=== PATIENT | female | born 1985 | race Caucasian/White ===

== ENCOUNTER → 2016-05-17 | Outpatient (CLI) | payer MEDICAID ==
[~2016-05-17] MED LIST: ACET-703 PO; ADVAI100I PO; ALBU8I INH; ALBUAER3 INH; BREAST PUMP1 MI1; CETI10 PO; DESO1TAB PO; IRON325T2 PO; METH4TAB6 PO; PEAKMIS IN; PRENCAP6 PO; PROC10TA PO; TERC.4%V VAGINAL; TERC0.8C VAGINAL; ZITH250T PO
== END ==
LOC: HPND 10:40
PROVIDERS: ATTEND Family Medicine
DX: Z34.90 Encounter for supervision of normal pregnancy, unspecified, unspecified trimester (principal); Z3A.00 Weeks of gestation of pregnancy not specified
CPT/HCPCS: 76805

== ENCOUNTER → 2016-06-14 | Outpatient (CLI) | payer MEDICAID ==
[~2016-06-14] MED LIST changes: -ADVAI100I PO; -ALBU8I INH; -CETI10 PO; -DESO1TAB PO; -IRON325T2 PO; -METH4TAB6 PO; -PEAKMIS IN; -ZITH250T PO
== END ==
LOC: HPND 10:34
PROVIDERS: ATTEND Family Medicine
DX: Z36 Encounter for antenatal screening of mother (principal)
CPT/HCPCS: 76816

== ENCOUNTER → 2016-07-18 | Outpatient (CLI) | payer MEDICAID | LOC: HPND 10:37 | PROVIDERS: ATTEND Family Medicine | DX: O35.8XX0 Maternal care for other (suspected) fetal abnormality and damage, not applicable or unspecified (principal) | CPT/HCPCS: 76816 ==

== ENCOUNTER 2016-08-23 16:26 | Emergency (ER) | payer MEDICAID ==
[~2016-08-23 16:26] MED LIST changes: -BREAST PUMP1 MI1; -TERC.4%V VAGINAL; -TERC0.8C VAGINAL
--- NOTE | 2016-08-23 17:31 | PD ---
HPI Chief Complaint cramping, vaginal spotting Date Seen: August 23, 2016 (Edis Sierra MD R2) Travel History International Travel<30 Days: No Contact w/Intl Traveler<30Days: No Known Affected Area: No (Edis Sierar MD R2) History of Present Illness HPI Ms. Walsh is a 30 yo at 28 5/7 weeks (ISIDORO 11/10/2016) patient of Dr. Milner who presents with cramping and vaginal spotting. Patient states that cramping began at 3 PM while at work; patient describes cramping is initially in her lower abdomen but going to her upper abdomen as well. Patient states that cramping is similar to pain she gets with menstruation rather than interval contractions. Patient states that she feels this every couple minutes. Patient states she did not have similar symptoms with prior gestation. Patient describes pain as uncomfortable; 5/10 in severity. Patient also reports vaginal spotting intermittently over the past week. Patient states that she does not see brittney blood, but notices bloody/ red/pink stain after wiping and 1 episode of bloody tinge on underwear. Patient states she last had sex 24 hours ago. Over the past week, patient has gone several days without the symptoms but has noticed it for several days. Patient does not report fever/chills, dysuria, or diarrhea. Patient reports normal movement. No concern for rupture of membranes. Per review of records, patient had reassuring ultrasound 07/18 without evidence of placental previa. ISIDORO consistent with LMP. labs reassuring. Patient has past medical history of asthma but has not used albuterol inhaler in approximately 1 month. Para: 1 : 3 : 1 (Edis Sierra MD R2) History Past Medical History Narrative Medical Per EMR Asthma (currently mild intermittent) Mild Anemia (Edis Sierra MD R2) Obstetric History Obstetric History 011 at term for nonreassuring rhythm in 2013 1 induced at 6 weeks gestation (Edis Sierra MD R2) Past Surgical History Narrative Surgical section 1 (Edis Sierra MD R2) Family History Narrative Family History Maternal- None Paternal- None Sisters x 2-Healthy (Edis Sierra MD R2) Social History Narrative Social History Lives in: [facility] Lives with Work: [employer] Pets: 1 cat and 1 dog Alcohol: prev. social drinker Tobacco: none Illicit drugs: none Insurance: medicaid (Edis Sierra MD R2) Allergies-Medications (Allergen,Severity, Reaction): Coded Allergies: No Known Allergies (Unverified , 08/09/16) Home Meds Active Scripts Terconazole Vaginal Cream 0.8 % Cream1 Appl VAGINAL HS #20 GM Ref 0 For 3 days. Prov:Edis Sierra MD R2 08/23/16 Prochlorperazine Maleate 10 Mg Tab10 Mg PO Q8HR PRN (NAUSEA OR VOMITING) #10 TAB Ref 0 Prov:Edis Sierra MD R2 06/05/16 Albuterol 8.5 GM Inh (Proair Hfa 8.5 GM Inh)90 Mcg/Act Aer2 Puff INH Q4-6H PRN ( SHORTNESS OF BREATH) #1 INHALER Ref 6 108 mcg/actuation Prov:Saulo Milner MD R2 05/17/16 Reported Medications Acetaminophen (Tylenol Extra Strength)500 Mg Tab1,000 Mg PO Q4-6H PRN (PAIN) Ref 0 06/05/16 Mv & Min W/Fe Fumarat ( 1) Cap1 Cap PO DAILY 08/27/13 Review of Systems General / Constitutional: No: Fever Eyes: No: Blurred Vision HENT: No: Headaches Cardiovascular: No: Chest Pain or Discomfort Respiratory: No: Short of Breath Gastrointestinal: Abdominal Pain (cramping) Genitourinary: No: Dysuria Skin: No Rash (Edis Sierra MD R2) Physical Exam T 97.9 RR 20 HR 87 BP 109/60 Narrative GENERAL: Well-nourished, well-developed patient. SKIN: Warm and dry. HEAD: Normocephalic and atraumatic. EYES: No scleral icterus. No injection or drainage. ENT: No nasal drainage noted. Mucous membranes pink. Airway patent. NECK: Supple, trachea midline. No JVD. CARDIOVASCULAR: Regular rate and rhythm without murmurs, gallops, or rubs. RESPIRATORY: CTAB; normal rate ABDOMEN/GI: Abdomen soft, non-tender, bowel sounds present, no rebound, no guarding Gravid EXTREMITIES: No cyanosis or edema. NEUROLOGICAL: Awake and alert. Motor and sensory function grossly within normal limits. GENITOURINARY: Speculum performed External Genitalia: intact and normal in appearance Cervix: appears closed, no signs of bleeding. Whitish, thick discharge present suggestive of yeast infection Dilatation: visually appears closed Membranes: Intact Uterine Contractions: None FHT's: Category: 1 Baseline: 130 Reactive: Y Variability: Mod Decels: None (Edis Sierra MD R2) Data Data Vital Signs Reviewed: Yes (Edis Sierra MD R2) MDM Medical Record Reviewed: Yes Narrative Course / MDM 30 yo at 28 5/7 weeks (ISIDORO 11/10/2016) patient of Dr. Milner -Symptoms of 1 day cramping and 1 week vaginal spotting -No previa on prior US -Cat 1 rhythm -No contractions on EFM -Speculum- no signs of bleeding. White discharge present suggestive of yeast infection Plan: -Will plan for discharge home and follow-up with Dr. Milner. Patient reassured regarding rhythm and lack of contractions on EFM; she will plan to rest at home for several days and drink fluids. Patient requests treatment for candidal infection, stating that she got yeast infection with the last and has felt some vaginal itching. Patient advised to return the ED with any worsening cramping or bleeding between now and her appointment next Friday with Dr. Milner. (Edis Sierra MD R2) Diagnosis Diagnosis: Primary Impression: Abdominal pain in Additional Impression: Candidal vaginitis Disposition: 01 DISCHARGE HOME Condition: Stable Scripts Terconazole Vaginal Cream 0.8 % Cream1 Appl VAGINAL HS #20 GM Ref 0 For 3 days. Prov:Edis Sierra MD R2 08/23/16 Patient Instructions: Abdominal Pain in (ED), General Instructions Collaborating MD Comments Agree with assessment and management plan (Nafisa Tan MD) Edis Sierra MD R2 August 23, 2016 17:31 Nafisa Tan MD August 23, 2016 23:03
[2016-08-23] MEDS ORDERED: TERC0.8C VAGINAL (18:28)
[2016-09-10] MEDS ORDERED: BREAST PUMP1 MI1 (16:55)
[2016-10-02] MEDS ORDERED: TERC.4%V VAGINAL (14:54)
== END 2016-08-23 20:52 | disposition home or self-care (01) ==
LOC: HOBED 16:26
DX: O26.853 Spotting complicating pregnancy, third trimester (principal); O98.813 Other maternal infectious and parasitic diseases complicating pregnancy, third trimester; B37.3 Candidiasis of vulva and vagina; Z3A.28 28 weeks gestation of pregnancy
CPT/HCPCS: 99283

== ENCOUNTER → 2016-10-15 | Outpatient (CLI) | payer MEDICAID ==
[~2016-10-15] MED LIST changes: +BREAST PUMP1 MI1; +TERC.4%V VAGINAL; +TERC0.8C VAGINAL
== END ==
LOC: HPND 10:01
PROVIDERS: ATTEND Family Medicine
DX: O36.63X0 Maternal care for excessive fetal growth, third trimester, not applicable or unspecified (principal); Z3A.36 36 weeks gestation of pregnancy
CPT/HCPCS: 76816

== ENCOUNTER → 2016-10-24 | Outpatient (CLI) | payer MEDICAID | LOC: HPND 08:40 | PROVIDERS: ATTEND Family Medicine | DX: O36.63X0 Maternal care for excessive fetal growth, third trimester, not applicable or unspecified (principal) | CPT/HCPCS: 76815 ==

== ENCOUNTER 2016-11-09 21:51 | Emergency (ER) | payer MEDICAID ==
[2016-11-09 22:45] VITALS: RESP 18
--- NOTE | 2016-11-09 22:47 | PD ---
HPI Chief Complaint contractions Date Seen: Nov 09, 2016 Time Seen: 22:54 Travel History International Travel<30 Days: No Contact w/Intl Traveler<30Days: No History of Present Illness HPI 31 y/o at 39/6 weeks presents for contractions. States she started having contractions at midnight, every 10 minutes or so. States they have been increasing in frequency and are now every 5-10 minutes and are getting stronger. Denies any vaginal bleeding. Loss some fluid yesterday, thinks it may be mucus plug. No problems with this , sees Dr. Mliner in the [facility]. No problems this . Denies any headache, chest pain, SOB, changes in vision , dysuria, leg swelling History Past Medical History Narrative Medical Asthma Obstetric History Obstetric History 1st was at 41 weeks Past Surgical History Narrative Surgical Family History Family History: Negative Social History Alcohol Use: No Tobacco Use: No Substance Abuse: No Allergies-Medications (Allergen,Severity, Reaction): Coded Allergies: No Known Allergies (Unverified , 11/07/16) Home Meds Active Scripts Terconazole Vaginal Cream (Terazol 7 Vaginal Cream)0.4 % Cream1 Appl VAGINAL HS #45 GM Ref 0 1 applicatorful intravaginally x 7 nights Prov:Saulo Milner MD R2 11/07/16 Breast Pump 1 Mis Mis #1 Ea .[address] As Directed Prov:Saulo Milner MD R2 09/10/16 Terconazole Vaginal Cream 0.8 % Cream1 Appl VAGINAL HS #20 GM Ref 0 For 3 days. Prov:Edis Sierra MD R2 08/23/16 Prochlorperazine Maleate 10 Mg Tab10 Mg PO Q8HR PRN (NAUSEA OR VOMITING) #10 TAB Ref 0 Prov:Edis Sierra MD R2 06/05/16 Albuterol 8.5 GM Inh (Proair Hfa 8.5 GM Inh)90 Mcg/Act Aer2 Puff INH Q4-6H PRN ( SHORTNESS OF BREATH) #1 INHALER Ref 6 108 mcg/actuation Prov:Saulo Milner MD R2 05/17/16 Reported Medications Acetaminophen (Tylenol Extra Strength)500 Mg Tab1,000 Mg PO Q4-6H PRN (PAIN) Ref 0 06/05/16 Mv & Min W/Fe Fumarat ( 1) Cap1 Cap PO DAILY 08/27/13 Discontinued Scripts Terconazole Vaginal Cream (Terazol 7 Vaginal Cream)0.4 % Cream1 Appl VAGINAL HS #45 GM Ref 0 1 applicatorful intravaginally x 7 nights Prov:Saulo Milner MD R2 10/02/16 Review of Systems General / Constitutional: Weight Gain, No: Fever, Weight Loss Eyes: No: Diploplia, Blurred Vision HENT: No: Headaches, Vertigo Cardiovascular: No: Irregular Rhythm, Chest Pain or Discomfort Respiratory: No: Cough, Short of Breath Gastrointestinal: No: Nausea, Vomiting, Diarrhea, Abdominal Pain Genitourinary: No: Urgency, Frequency, Dysuria, Nocturia Musculoskeletal: No: Limited ROM, Weakness Skin: No Rash, No Itching Neurologic: No: Weakness, Dizziness Physical Exam Narrative GENERAL: Well-nourished, well-developed patient. SKIN: Warm and dry. HEAD: Normocephalic and atraumatic. EYES: No scleral icterus. No injection or drainage. ENT: No nasal drainage noted. Mucous membranes pink. Airway patent. NECK: Supple, trachea midline. No JVD. CARDIOVASCULAR: Regular rate and rhythm without murmurs, gallops, or rubs. RESPIRATORY: Breath sounds equal bilaterally. No accessory muscle use. ABDOMEN/GI: Abdomen soft, non-tender, bowel sounds present, no rebound, no guarding Gravid to 39 weeks size GENITOURINARY: External Genitalia: intact and normal in appearance Dilatation: 2 Effacement: 50 Station: -3 Presentation: vertex Membranes: intact Uterine Contractions: occasional FHT's: Category: 1 Baseline: 150 Reactive: yes Variability: moderate Decels: none EXTREMITIES: No cyanosis or edema. BACK: Nontender without obvious deformity. No CVA tenderness. NEUROLOGICAL: Awake and alert. Motor and sensory grossly within normal limits. Five out of 5 muscle strength in all muscle groups. Normal speech. Data Data Vital Signs Reviewed: Yes [facility] Medical Record Reviewed: Yes Interpretation(s) 31 y/o at 39/6 weeks presents with contractions. Category 1 FHT with occasional contractions Cervical exam: /-3 IUP at 39 weeks in latent labor -Discharge home -Return if gush of fluids, painful contractions every few minutes -Encourage hydration and fluid intake, rest, warm bath Diagnosis Diagnosis: Primary Impression: 39 weeks gestation of Disposition: 01 DISCHARGE HOME Condition: Stable Patient Instructions: General Instructions Andrew Contreras MD R1 Nov 09, 2016 22:47
[2016-11-21] MEDS ORDERED: TYLETAB34 PO (11:24)
[2016-11-21] MEDS ORDERED: IBUP-232 PO (11:24)
[2016-11-21] MEDS ORDERED: CEPH-460 PO (11:35)
== END 2016-11-09 23:31 | disposition home or self-care (01) ==
LOC: HOBED 21:51
DX: O47.1 False labor at or after 37 completed weeks of gestation (principal); Z3A.39 39 weeks gestation of pregnancy
CPT/HCPCS: 59025

== ENCOUNTER 2016-11-10 14:10 | Inpatient (IN) | payer MEDICAID ==
[~2016-11-10] VITALS: Ht 170.2 cm; Wt 84.4 kg
[2016-11-10] VITALS (49 sets, daily range): BP systolic 84–122; BP diastolic 36–83; PULSE 71–128; RESP 16–18; TEMP 97.7–97.8
--- NOTE | 2016-11-10 14:50 | PD ---
HPI Chief Complaint Contractions Date Seen: Nov 10, 2016 Time Seen: 14:40 Travel History International Travel<30 Days: No Contact w/Intl Traveler<30Days: No History of Present Illness HPI Patient is a 31-year-old at 40 and 0, EDC 11/10/16, who presents to the OB ED with contractions for 2 days. She states that contractions are every 2-3 minutes since the last 2 hours. She denies leakage of fluid, vaginal bleeding, and contractions but did have bloody show. She feels baby moving regularly. She denies STEELE/N/V/D/fever/sick contacts/SOB/calf pain/dizziness/seeing spots. OB care is with Dr. Saulo Milner at the [facility]. She is GBS negative She came in last night for contractions and was 2cm at that time. History Past Medical History Narrative Medical Asthma Mild anemia Obstetric History Obstetric History G1: First trimester miscarriage G2: , in 2013, healthy but had distress requiring emergent , CAN 1 treated yeast infection this . Family History Family History: Negative Social History Alcohol Use: No Tobacco Use: No Substance Abuse: No Allergies-Medications (Allergen,Severity, Reaction): Coded Allergies: No Known Allergies (Unverified , 11/07/16) Home Meds Active Scripts Terconazole Vaginal Cream (Terazol 7 Vaginal Cream)0.4 % Cream1 Appl VAGINAL HS #45 GM Ref 0 1 applicatorful intravaginally x 7 nights Prov:Saulo Milner MD R2 11/07/16 Breast Pump 1 Mis Mis #1 Ea .route As Directed Prov:Saulo Milner MD R2 09/10/16 Terconazole Vaginal Cream 0.8 % Cream1 Appl VAGINAL HS #20 GM Ref 0 For 3 days. Prov:Edis Sierra MD R2 08/23/16 Prochlorperazine Maleate 10 Mg Tab10 Mg PO Q8HR PRN (NAUSEA OR VOMITING) #10 TAB Ref 0 Prov:Edis Sierra MD R2 06/05/16 Albuterol 8.5 GM Inh (Proair Hfa 8.5 GM Inh)90 Mcg/Act Aer2 Puff INH Q4-6H PRN ( SHORTNESS OF BREATH) #1 INHALER Ref 6 108 mcg/actuation Prov:Saulo Milner MD R2 05/17/16 Reported Medications Acetaminophen (Tylenol Extra Strength)500 Mg Tab1,000 Mg PO Q4-6H PRN (PAIN) Ref 0 06/05/16 Mv & Min W/Fe Fumarat ( 1) Cap1 Cap PO DAILY 08/27/13 Discontinued Scripts Terconazole Vaginal Cream (Terazol 7 Vaginal Cream)0.4 % Cream1 Appl VAGINAL HS #45 GM Ref 0 1 applicatorful intravaginally x 7 nights Prov:Saulo Milner MD R2 10/02/16 Review of Systems Except as stated in HPI: all other systems reviewed are Neg Physical Exam Narrative GENERAL: Well-nourished, well-developed patient. SKIN: Warm and dry. HEAD: Normocephalic and atraumatic. EYES: No scleral icterus. No injection or drainage. ENT: No nasal drainage noted. Mucous membranes pink. Airway patent. NECK: Supple, trachea midline. No JVD. CARDIOVASCULAR: Regular rate and rhythm without murmurs, gallops, or rubs. RESPIRATORY: Breath sounds equal bilaterally. No accessory muscle use. ABDOMEN/GI: Abdomen soft, non-tender, bowel sounds present, no rebound, no guarding gravid. GENITOURINARY: External Genitalia: intact and normal in appearance Cervix: 70/-2 Presentation: Vertex Membranes: Intact Uterine Contractions: Every 4 minutes on monitor FHT's: Category: 1 Baseline: 140 Reactive: Yes to 160 Variability: Moderate Decels: None EXTREMITIES: No cyanosis or edema. BACK: Nontender without obvious deformity. No CVA tenderness. NEUROLOGICAL: Awake and alert. Motor and sensory grossly within normal limits. Normal speech. Data Data Vital Signs Reviewed: Yes (bp 122/69. P 93) Orders Vital Signs (Adult) .ON ADMISSION (11/10/16 14:22) ^ Labor Status (11/10/16 14:22) Urinalysis - C+S If Indicated (11/10/16 14:22) ^ Non Stress Test (11/10/16 14:22) ^ Hydration (11/10/16 14:22) MDM Medical Record Reviewed: Yes Narrative Course / MDM 31-year-old at 40 and 0/7 weeks gestation. She is visiting with contractions for 2 days. She is dilated /-2. Will check for cervical change , if in labor will admit. [facility] Dr. Milner for care. Intrauterine : Category 1 tracing Patient desires Cervix 3/70/-3, favorable Contractions every 4 minutes Intact membranes Will obtain UA Dr. Nickolas Milner aware Monitor heart tones Routine care GBS negative: History of : Due to distress Operative report from March 2014 reviewed, patient had very low transverse C- section with 2 layer closure. Per operative procedure was uncomplicated. The procedure was performed by Dr. Grijalva. Trial: Patient would like to have vaginal after . Nothing by mouth She did not have a consult Epidural available No Pitocin Patient was informed that if the strip is not reassuring, or if she develops symptoms suggesting severe preeclampsia, or other unforeseen difficulties, it may be necessary to proceed with a delivery Patient understands and agrees. All questions were answered. Arin Campbell Dr., MD R1 Nov 10, 2016 14:50
[2016-11-10] MEDS ORDERED: LACTATED RINGER'S 1000 ML INJ 1,000 ML IV PRN (15:02)
--- NOTE | 2016-11-10 15:10 | PD ---
History of Present Illness Date Seen: Nov 10, 2016 Time Seen: 14:50 History of Present Illness 31y/o , IUP at 40.0 Patient presents reporting painful ctx and expressed desire to . She is certain about her desire to and presented requesting the opportunity to . Her records were reviewed and indicate prior C/S performed on 03/26/[address] Grijalva for " distress." The C/S was a 2-layer closure with no extensions documented. We discussed the risks of including but not limited to uterine rupture of about 1% with the potential of catastrophic consequences if uterine rupture occurs including brain damage and , as well as maternal complications of hemorrhage, , and hysterectomy. The patient states she is certain she wants a trail of labor and is willing to accept those risks. We discussed that we would use the typical indicated for C/S including nonreassuring FHR and arrest disorders. We discussed the cautious use of oxytocin if indicated and that this may increase her risks. She desires to proceed. All of her questions were answered and consent signed. Nelda Castellon MD Nov 10, 2016 15:10
--- NOTE | 2016-11-10 15:11 | HHI.HP ---
HPI Chief Complaint CTX Date Seen: Nov 10, 2016 Time Seen: 15:12 Travel History International Travel<30 Days: No Contact w/Intl Traveler<30Days: No History of Present Illness HPI Chief Complaint Contractions Date Seen: Nov 10, 2016 Time Seen: 14:40 Travel History International Travel<30 Days: No Contact w/Intl Traveler<30Days: No History of Present Illness HPI Patient is a 31-year-old at 40 and 0, EDC 11/10/16, who presents to the OB ED with contractions for 2 days. She states that contractions are every 2-3 minutes since the last 2 hours. She denies leakage of fluid, vaginal bleeding, and contractions but did have bloody show. She feels baby moving regularly. She denies STEELE/N/V/D/fever/sick contacts/SOB/calf pain/dizziness/seeing spots. OB care is with Dr. Saulo Milner at the [facility]. She is GBS negative She came in last night for contractions and was 2cm at that time. History Past Medical History Narrative Medical Asthma Mild anemia Obstetric History Obstetric History G1: First trimester miscarriage G2: , in 2013, healthy but had distress requiring emergent , CAN 1 treated yeast infection this . Past Surgical History Surgical History: No Previous Surgery Family History Family History: Negative Social History Alcohol Use: No Tobacco Use: No Substance Abuse: No Allergies-Medications (Allergen,Severity, Reaction): Coded Allergies: No Known Allergies (Unverified , 11/07/16) Home Meds Active Scripts Terconazole Vaginal Cream (Terazol 7 Vaginal Cream)0.4 % Cream1 Appl VAGINAL HS #45 GM Ref 0 1 applicatorful intravaginally x 7 nights Prov:Saulo Milner MD R2 11/07/16 Breast Pump 1 Mis Mis #1 Ea .route As Directed Prov:Saulo Milner MD R2 09/10/16 Terconazole Vaginal Cream 0.8 % Cream1 Appl VAGINAL HS #20 GM Ref 0 For 3 days. Prov:Edis Sierra MD R2 08/23/16 Prochlorperazine Maleate 10 Mg Tab10 Mg PO Q8HR PRN (NAUSEA OR VOMITING) #10 TAB Ref 0 Prov:Edis Sierra MD R2 06/05/16 Albuterol 8.5 GM Inh (Proair Hfa 8.5 GM Inh)90 Mcg/Act Aer2 Puff INH Q4-6H PRN ( SHORTNESS OF BREATH) #1 INHALER Ref 6 108 mcg/actuation Prov:Saulo Milner MD R2 05/17/16 Reported Medications Acetaminophen (Tylenol Extra Strength)500 Mg Tab1,000 Mg PO Q4-6H PRN (PAIN) Ref 0 06/05/16 Mv & Min W/Fe Fumarat ( 1) Cap1 Cap PO DAILY 08/27/13 Discontinued Scripts Terconazole Vaginal Cream (Terazol 7 Vaginal Cream)0.4 % Cream1 Appl VAGINAL HS #45 GM Ref 0 1 applicatorful intravaginally x 7 nights Prov:Saulo Milner MD R2 10/02/16 Review of Systems Except as stated in HPI: all other systems reviewed are Neg Physical Exam Narrative GENERAL: Well-nourished, well-developed patient. SKIN: Warm and dry. HEAD: Normocephalic and atraumatic. EYES: No scleral icterus. No injection or drainage. ENT: No nasal drainage noted. Mucous membranes pink. Airway patent. NECK: Supple, trachea midline. No JVD. CARDIOVASCULAR: Regular rate and rhythm without murmurs, gallops, or rubs. RESPIRATORY: Breath sounds equal bilaterally. No accessory muscle use. ABDOMEN/GI: Abdomen soft, non-tender, bowel sounds present, no rebound, no guarding gravid. GENITOURINARY: External Genitalia: intact and normal in appearance Cervix: 3/70/-2 Presentation: Vertex Membranes: Intact Uterine Contractions: Every 4 minutes on monitor FHT's: Category: 1 Baseline: 140 Reactive: Yes to 160 Variability: Moderate Decels: None EXTREMITIES: No cyanosis or edema. BACK: Nontender without obvious deformity. No CVA tenderness. NEUROLOGICAL: Awake and alert. Motor and sensory grossly within normal limits. Normal speech. Data Data Vital Signs Reviewed: Yes (bp 122/69. P 93) Orders Vital Signs (Adult) .ON ADMISSION (11/10/16 14:22) ^ Labor Status (11/10/16 14:22) Urinalysis - C+S If Indicated (11/10/16 14:22) ^ Non Stress Test (11/10/16 14:22) ^ Hydration (11/10/16 14:22) Admit To Inpatient (11/10/16 ) Code Status (11/10/16 15:02) Vital Signs (Adult) .Per protocol (11/10/16 15:02) Activity Oob Ad Katie (11/10/16 15:02) Heart (11/10/16 15:02) Amnioinfusion (11/10/16 15:02) Urinary Catheter Management .ONCE (11/10/16 15:02) Diet Npo (11/10/16 Dinner) Lactated Ringer's 1000 Ml Inj (Lr 1000 M (11/10/16 15:02) Lactated Ringer's 1000 Ml Inj (Lr 1000 M (11/10/16 15:02) Sodium Chlorid 0.9% 500 Ml Inj (Ns 500 M (11/10/16 15:15) Sodium Chlor 0.9% 1000 Ml Inj (Ns 1000 M (11/10/16 15:22) Lidocaine 1% Inj (50 Ml) (Xylocaine 1% I (11/10/16 15:15) Citric Acid-Sodium Citrate Liq (Bicitra (11/10/16 15:15) Fentanyl Inj (Fentanyl Inj) (11/10/16 15:15) Fentanyl Inj (Fentanyl Inj) (11/10/16 15:15) Complete Blood Count With Diff (11/10/16 15:02) Hold Clot (11/10/16 15:02) Abo/Rh Blood Type (11/10/16 15:02) Resp Oxygen Non Rebreathe Mask (11/10/16 ) ^ Epidural / Intrathecal Infus (11/10/16 15:02) Oxytocin 30 Units-500ml Premix (Pitocin (11/10/16 15:15) Lidocaine 1% Inj (50 Ml) (Xylocaine 1% I (11/10/16 15:15) Light Mineral Oil (Muri-Lube Oil) (11/10/16 15:15) Inpatient Certification (11/10/16 ) Ob (2e) Additional Admit Info (11/10/16 15:03) Assessment/Plan Assessment and Plan 31-year-old at 40 and 0/7 weeks gestation. She is visiting with contractions for 2 days. She is dilated /-2. Will check for cervical change , but will admit given patient has made cervical change since yesterday and contractions noted. [facility] Dr. Milner for care. Intrauterine : Category 1 tracing Patient desires Cervix 3/70/-3, favorable Contractions every 4 minutes Intact membranes Will obtain UA Dr. Nickolas Milner aware Monitor heart tones Routine care GBS negative: History of : Due to distress Operative report from March 2014 reviewed, patient had very low transverse C- section with 2 layer closure. Per operative procedure was uncomplicated. The procedure was performed by Dr. Grijalva. Trial: Patient would like to have vaginal after . Nothing by mouth She did not have a consult Epidural available No Pitocin Patient was informed that if the strip is not reassuring, or if she develops symptoms suggesting severe preeclampsia, or other unforeseen difficulties, it may be necessary to proceed with a delivery Patient understands and agrees. All questions were answered. Arin Campbell Dr., MD R1 Nov 10, 2016 15:11
[2016-11-10] MEDS ORDERED: CITRIC ACID-SODIUM CITRATE LIQ 30 ML UDC PO SCH (15:15)
[2016-11-10] MEDS ORDERED: SODIUM CHLORID 0.9% 500 ML INJ 500 ML IV PRN (15:15)
[2016-11-10] MEDS ORDERED: LIDOCAINE HCL 1% 50 ML VIAL INFIL PRN (15:15)
[2016-11-10] MEDS ORDERED: LIDOCAINE HCL 1% 50 ML VIAL I-DERMAL PRN (15:15)
[2016-11-10] MEDS ORDERED: MINERAL OIL 10 ML VIAL TOPICAL PRN (15:15)
[2016-11-10] MEDS ORDERED: OXYTOCIN 30 UNITS-500ML PREMIX 500 ML IV ONE (15:15)
[2016-11-10] MEDS ORDERED: SODIUM CHLOR 0.9% 1000 ML INJ 1,000 ML IV PRN (15:22)
[2016-11-10 16:07] LABS: AUTOMATED NEUTROPHIL # 10.6 TH/MM3 (1.8-7.7); BASOPHIL % 0.3 % (0.0-2.0); EOSINOPHIL % 0.2 % (0.0-4.0); HEMATOCRIT 36.1 % (35.0-46.0); HEMO FLAGS DIFF FINAL; LYMPH % 14.7 % (9.0-44.0); LYMPHOCYTE # 1.9 TH/MM3 (1.0-4.8); MEAN CELL VOLUME 88.9 FL (80.0-100.0); MEAN CORPUSCULAR HEMOGLOBIN 31.8 PG (27.0-34.0); MEAN CORPUSCULAR HGB CONC 35.7 % (32.0-36.0); MONO % 3.4 % (0.0-8.0); NEUT % 81.4 % (16.0-70.0); PLATELET COUNT 268 TH/MM3 (150-450); RED BLOOD COUNT 4.05 MIL/MM3 (4.00-5.30); RED CELL DISTRIBUTION WIDTH 13.6 % (11.6-17.2)
[2016-11-10 16:14] LABS: BACTERIA, URINE FEW /hpf; BLOOD, URINE MOD (NEG); COMMENT (UR) CULTURE INDICATED; CULTURE IF INDICATED CULTURE INDICATED; GLUCOSE,URINE NEG (NEG); KETONE, URINE 10 mg/dL (NEG); MUCUS URINE FEW /lpf (OCC); NITRITE,URINE NEG (NEG); PH, URINE 6.5 (5.0-8.5); SQUAMOUS EPITHELIAL CELL URINE 21 /hpf (0-5); TRANSITIONAL EPI CELLS, URINE 1 /hpf; URINE COLOR YELLOW (YELLW/STRAW)
[2016-11-10] MEDS ORDERED: fentaNYL 2MCG-BUPIV 0.125% INJ 100 ML ONE (16:17)
[2016-11-10] MEDS ORDERED: ePHEDrine/NS 25 MG/5 ML SYR ONE (16:35)
--- NOTE | 2016-11-10 16:53 | PD.LABORPN ---
Subjective Subjective Patient is a 31-year-old at 40 and 0, EDC 11/10/16 admitted for a . Family present at bedside. Pt had epidural placed at 1621, continues to endorse abdominal discomfort. BP 104/66, HR 86. Pt with no acute concerns. GBS negative. Objective Vital Signs Vital Signs Date Time Temp Pulse Resp B/P Pulse Ox O2 Delivery O2 Flow Rate FiO2 11/10/16 16:40 78 11/10/16 16:40 86 122/76 11/10/16 16:36 87 113/76 11/10/16 16:35 88 11/10/16 16:30 107 11/10/16 16:30 88 93/48 11/10/16 16:26 94 108/65 11/10/16 16:25 94 11/10/16 16:22 96 111/71 11/10/16 15:36 80 108/72 11/10/16 15:35 97.7 11/10/16 15:33 18 Objective Vitals: Reviewed Pelvic Exam: preformed at 1430, will repeat after pt comfortable with epidural Cervix: soft, posterior Dilatation: 3 Effacement: 50% Station: -2 Presentation: Vertex Membranes: Intact Uterine Contractions: Q3-5 minutes FHT's: Category: 1 Baseline: 145 Reactive: + Variability: Moderate Decels: Absent Assessment/Plan Assessment and Plan 31yo at 40/0 weeks gestation, desires will undergo TOLAC Category 1 tracing, reassuring [place]/External monitoring Anticipate vaginal delivery Monitor for sudden onset of abdominal pain Cervical exam to be repeated once pt is comfortable with epidural to asses for cervical change Continue to monitor wdw Dr. Nickolas Milner and Edwin Mccray MD Nov 10, 2016 16:52
[2016-11-10] MEDS: LACTATED RINGER'S 1000 ML INJ 1,000 ML IV SCH (16:54)
[2016-11-10] MEDS ORDERED: NO SYSTEM NARCOTICS PRN (17:45)
[2016-11-10] MEDS ORDERED: ePHEDrine/NS 25 MG/5 ML SYR IV PRN (17:45)
[2016-11-10] MEDS ORDERED: DO NOT ADMINISTER ANTICOAGULANTS PRN (17:45)
[2016-11-10] MEDS ORDERED: fentaNYL 2MCG-BUPIV 0.125% 100 ML EPIDURAL SCH (17:45)
--- NOTE | 2016-11-10 19:49 | PD.LABORPN ---
Subjective Subjective OBHG S: patient comfortable with epidural O: VSS AF FHR: 120s, moderate LTV, good accels, no decels [place]: pt on side, difficult to assess but reassuring FHR A/P: 1. IUP at 40.0 2. EFW: pt reports US 2-3w ago was 6#3oz, daughter was 8#3oz and she feels this baby is "a lot" smaller than her last 3. Early labor/ trial: early active vs late latent labor, continue expectant management at this time due to h/o , discussed possible oxytocin in a small, controlled dose if needed, pt in agreement if needed, will reassess in 4-6h or sooner if needed 4. : patient aware of risks, wants to proceed, consent signed and on chart 5. FHR reassuring Objective Vital Signs Vital Signs Date Time Temp Pulse Resp B/P Pulse Ox O2 Delivery O2 Flow Rate FiO2 11/10/16 19:30 86 114/67 11/10/16 19:16 82 109/62 11/10/16 18:56 97.8 18 11/10/16 18:45 96 97/54 11/10/16 18:36 71 96/52 11/10/16 18:30 89 84/36 11/10/16 18:13 97.7 11/10/16 18:00 79 92/51 11/10/16 17:46 96 105/71 11/10/16 17:43 18 11/10/16 17:30 77 117/83 11/10/16 17:12 18 11/10/16 17:05 79 109/65 11/10/16 17:00 89 107/67 11/10/16 17:00 88 11/10/16 16:55 83 11/10/16 16:55 85 104/66 11/10/16 16:50 93 117/67 11/10/16 16:50 90 11/10/16 16:45 89 11/10/16 16:40 78 11/10/16 16:40 86 122/76 11/10/16 16:36 87 113/76 11/10/16 16:35 88 11/10/16 16:30 107 11/10/16 16:30 88 93/48 11/10/16 16:26 94 108/65 11/10/16 16:25 94 11/10/16 16:22 96 111/71 11/10/16 15:36 80 108/72 11/10/16 15:35 97.7 11/10/16 15:33 18 Objective Pelvic Exam: Cervix: [-] Dilatation: [-] Effacement: [-] Station: [-] Presentation: [-] Membranes: [intact or ruptured] Uterine Contractions: [-] FHT's: Category: [-] Baseline: [-] Reactive: [-] Variability: [-] Decels: [-] Nelda Castellon MD Nov 10, 2016 19:49
--- NOTE | 2016-11-10 23:18 | PD.LABORPN ---
Subjective Subjective OBHG S: patient reporting rectal pressure, increasing ctx O: VSS AF FHT: 140s, moderate LTV, no repetitive decels, good accels [place]: q 2-4m SVE: 5/90/-1, cephalic A/P: 1. IUP at 40.0 2. Labor: appears to be entering active phase of labor, expectant management 3. : will continue 4. FHR reassuring, continue close monitoring 5. GBS neg Objective Vital Signs Vital Signs Date Time Temp Pulse Resp B/P Pulse Ox O2 Delivery O2 Flow Rate FiO2 11/10/16 22:31 72 102/61 11/10/16 22:19 83 95/57 11/10/16 22:15 74 93/49 11/10/16 22:00 87 92/51 11/10/16 21:45 82 92/46 11/10/16 21:30 74 93/50 11/10/16 21:21 97.7 18 11/10/16 21:15 81 107/67 11/10/16 21:00 71 101/63 11/10/16 20:45 76 104/73 11/10/16 20:33 18 11/10/16 20:30 109 118/78 11/10/16 20:15 92 109/74 11/10/16 20:00 75 109/66 11/10/16 19:46 128 100/68 11/10/16 19:30 86 114/67 11/10/16 19:16 82 109/62 11/10/16 19:00 97 93/56 11/10/16 18:56 97.8 18 11/10/16 18:45 96 97/54 11/10/16 18:36 71 96/52 11/10/16 18:30 89 84/36 11/10/16 18:13 97.7 11/10/16 18:00 79 92/51 11/10/16 17:46 96 105/71 11/10/16 17:43 18 11/10/16 17:30 77 117/83 11/10/16 17:12 18 11/10/16 17:05 79 109/65 11/10/16 17:00 89 107/67 11/10/16 17:00 88 11/10/16 16:55 83 11/10/16 16:55 85 104/66 11/10/16 16:50 93 117/67 11/10/16 16:50 90 11/10/16 16:45 89 11/10/16 16:40 78 11/10/16 16:40 86 122/76 11/10/16 16:36 87 113/76 11/10/16 16:35 88 11/10/16 16:30 107 11/10/16 16:30 88 93/48 11/10/16 16:26 94 108/65 11/10/16 16:25 94 11/10/16 16:22 96 111/71 11/10/16 15:36 80 108/72 11/10/16 15:35 97.7 11/10/16 15:33 18 Objective Pelvic Exam: Cervix: [-] Dilatation: [-] Effacement: [-] Station: [-] Presentation: [-] Membranes: [intact or ruptured] Uterine Contractions: [-] FHT's: Category: [-] Baseline: [-] Reactive: [-] Variability: [-] Decels: [-] Nelda Castellon MD Nov 10, 2016 23:18
[2016-11-11] VITALS (25 sets, daily range): BP systolic 86–130; BP diastolic 59–84; PULSE 72–184; RESP 16–18; TEMP 97.6–98.8
[2016-11-11] MEDS: LACTATED RINGER'S 1000 ML INJ 1,000 ML IV SCH (00:08)
--- NOTE | 2016-11-11 02:38 | PD.LABORPN ---
Subjective Subjective Attending Delivery Note Patient progressed to C/C/+1 and commenced spontaneous maternal expulsive efforts with reassuring FHR throughout. head delivered spontaneously and atraumatically over intact perineum followed by spontaneous and atraumatic delivery of anterior shoulder. A double nuchal cord was unable to be reduced over the shoulders, so was doubly clamped and cut and the remainder of the delivered atraumatically. The was vigorous and placed on the maternal abdomen. The placenta delivered spontaneously and appeared intact. A first degree left labial laceration was noted and repaired in an interrupted fashion with 4-0 vicryl with excellent cosmesis and hemostasis. EBL 200cc. I was present and scrubbed for entire procedure. Apgars 8/9. Mother and baby both doing well. Objective Vital Signs Vital Signs Date Time Temp Pulse Resp B/P Pulse Ox O2 Delivery O2 Flow Rate FiO2 11/11/16 02:00 141 122/77 11/11/16 01:45 124 112/71 11/11/16 01:30 153 130/74 11/11/16 01:15 184 90/67 11/11/16 01:02 124 110/72 11/11/16 00:46 92 104/84 11/11/16 00:34 130 106/76 11/11/16 00:30 111 86/63 11/11/16 00:18 18 11/11/16 00:15 79 90/60 11/11/16 00:08 16 11/11/16 00:01 77 109/71 11/10/16 23:46 81 105/63 11/10/16 23:31 78 105/70 11/10/16 23:22 16 11/10/16 23:22 97.7 11/10/16 23:16 119 98/82 11/10/16 23:00 97/72 11/10/16 22:45 76 93/55 11/10/16 22:31 72 102/61 11/10/16 22:19 83 95/57 11/10/16 22:15 74 93/49 11/10/16 22:00 87 92/51 11/10/16 21:45 82 92/46 11/10/16 21:30 74 93/50 11/10/16 21:21 97.7 18 11/10/16 21:15 81 107/67 11/10/16 21:00 71 101/63 11/10/16 20:45 76 104/73 11/10/16 20:33 18 11/10/16 20:30 109 118/78 11/10/16 20:15 92 109/74 11/10/16 20:00 75 109/66 11/10/16 19:46 128 100/68 11/10/16 19:30 86 114/67 11/10/16 19:16 82 109/62 11/10/16 19:00 97 93/56 11/10/16 18:56 97.8 18 11/10/16 18:45 96 97/54 11/10/16 18:36 71 96/52 Objective Pelvic Exam: Cervix: [-] Dilatation: [-] Effacement: [-] Station: [-] Presentation: [-] Membranes: [intact or ruptured] Uterine Contractions: [-] FHT's: Category: [-] Baseline: [-] Reactive: [-] Variability: [-] Decels: [-] Nelda Castellon MD Nov 11, 2016 02:38
--- NOTE | 2016-11-11 02:39 | PD.OB.DELI ---
Delivery Date: Nov 11, 2016 Anesthesia: Epidural Episiotomy: None Vaginal Delivery: Normal Presentation: Occiput anterior Nuchal Cord: x2 Delayed cord clamping (45 sec): No Infant: Female One Minute : 8 Five Minute : 9 Weight: 7 lb 10 oz Placenta: Spontaneous delivery Laceration: Vaginal laceration, 1 deg Repair: Vicryl Saulo Velez MD R2 Nov 11, 2016 02:39
[2016-11-11] MEDS ORDERED: BENZOCAINE 20% TOPICAL SPRAY 60 ML CAN TOPICAL PRN (02:45)
[2016-11-11] MEDS ORDERED: WITCH HAZEL 50%/GLYCERIN 12.5% 40 PAD JAR TOPICAL PRN (02:45)
[2016-11-11] MEDS ORDERED: ALUMINUM/MAGNESIUM/SIMETH 30 ML CUP PO PRN (02:45)
[2016-11-11] MEDS ORDERED: ZOLPIDEM TARTRATE 5 MG TAB PO PRN (02:45)
[2016-11-11] MEDS ORDERED: ONDANSETRON ODT 4 MG TAB PO PRN (02:45)
[2016-11-11] MEDS ORDERED: oxyCODONE/ACETAMINOPHEN 5 MG/325 MG TAB PO PRN (02:45)
[2016-11-11] MEDS ORDERED: DOCUSATE SODIUM 50 MG/SENNA 8.6 MG TAB PO PRN (02:45)
[2016-11-11] MEDS ORDERED: SODIUM CHLORIDE 0.9% FLUSH 10 ML FLUSH IV FLUSH PRN (02:45)
[2016-11-11] MEDS: IBUPROFEN 600 MG TAB PO PRN ×3 (07:47→22:09)
[2016-11-11] MEDS: ACETAMINOPHEN 325 MG TAB PO PRN ×3 (07:47→22:09)
[2016-11-11] MEDS ORDERED: SODIUM CHLORIDE 0.9% FLUSH 10 ML FLUSH IV FLUSH SCH (09:00)
--- NOTE | 2016-11-11 11:51 | HHI.OB ---
Subjective Post Day: 0 Remarks Patient is a 31-year-old delivered at 40 weeks and 1 day. Patient is day 0 after vaginal delivery. Patient's pain (3/10) is well- controlled. Patient reports eating and drinking without any nausea or vomiting. Patient reports moderate bleeding; has changed pad but pad was not completely soaked. Patient has not passed gas or had bowel movement. Patient is walking without lower extremity pain or shortness of breath. Patient reports desire to discuss contraception at 6 week OB follow-up appointment. Patient is breast- feeding. Objective Vitals/I&O Vital Signs Date Time Temp Pulse Resp B/P Pulse Ox O2 Delivery O2 Flow Rate FiO2 11/11/16 08:00 98.0 72 16 104/68 11/11/16 05:35 87 18 91/59 11/11/16 05:35 98.8 11/11/16 04:40 97.6 11/11/16 04:05 18 11/11/16 04:01 77 92/60 11/11/16 03:20 16 11/11/16 03:15 95 101/61 11/11/16 03:05 18 11/11/16 03:00 121 99/77 11/11/16 02:46 102 101/68 11/11/16 02:45 18 11/11/16 02:38 109 117/65 11/11/16 02:31 104 105/68 11/11/16 02:00 141 122/77 11/11/16 01:45 124 112/71 11/11/16 01:30 153 130/74 11/11/16 01:15 184 90/67 11/11/16 01:02 124 110/72 11/11/16 00:46 92 104/84 11/11/16 00:34 130 106/76 11/11/16 00:30 111 86/63 11/11/16 00:18 18 11/11/16 00:15 79 90/60 11/11/16 00:08 16 11/11/16 00:01 77 109/71 11/10/16 23:46 81 105/63 11/10/16 23:31 78 105/70 11/10/16 23:22 16 11/10/16 23:22 97.7 11/10/16 23:16 119 98/82 11/10/16 23:00 97/72 11/10/16 22:45 76 93/55 11/10/16 22:31 72 102/61 11/10/16 22:19 83 95/57 11/10/16 22:15 74 93/49 11/10/16 22:00 87 92/51 11/10/16 21:45 82 92/46 11/10/16 21:30 74 93/50 11/10/16 21:21 97.7 18 11/10/16 21:15 81 107/67 11/10/16 21:00 71 101/63 11/10/16 20:45 76 104/73 11/10/16 20:33 18 11/10/16 20:30 109 118/78 11/10/16 20:15 92 109/74 11/10/16 20:00 75 109/66 11/10/16 19:46 128 100/68 11/10/16 19:30 86 114/67 11/10/16 19:16 82 109/62 11/10/16 19:00 97 93/56 11/10/16 18:56 97.8 18 11/10/16 18:45 96 97/54 11/10/16 18:36 71 96/52 11/10/16 18:30 89 84/36 11/10/16 18:13 97.7 11/10/16 18:00 79 92/51 11/10/16 17:46 96 105/71 11/10/16 17:43 18 11/10/16 17:30 77 117/83 11/10/16 17:12 18 11/10/16 17:05 79 109/65 11/10/16 17:00 89 107/67 11/10/16 17:00 88 11/10/16 16:55 83 11/10/16 16:55 85 104/66 17 16:50 93 117/67 11/10/16 16:50 90 17 16:45 89 17 16:40 78 17 16:40 86 122/76 17 16:36 87 113/76 17 16:35 88 17 16:30 107 17 16:30 88 93/48 17 16:26 94 108/65 11/10/16 16:25 94 11/10/16 16:22 96 111/71 11/10/16 15:36 80 108/72 11/10/16 15:35 97.7 11/10/16 15:33 18 Objective Remarks GENERAL: Well-nourished, well-developed patient. CARDIOVASCULAR: Regular rate and rhythm without murmurs, gallops, or rubs. RESPIRATORY: Breath sounds equal bilaterally. No accessory muscle use. ABDOMEN/GI: Abdomen soft, non-tender. Fundus: Firm, non-tender at umbilicus. GENITOURINARY: Moderate bleeding. EXTREMITIES: No cyanosis or edema, non-tender, without signs of DVT. Medications and IVs Current Medications Medications (Trade) Dose Ordered Sig/Nitin Route Start Time Stop Time Status Last Admin Lactated Ringer's 1,000 ml @ 125 mls/hr Q8H IV 11/10/16 15:00 11/11/16 00:08 Lactated Ringer's 1,000 ml @ 3,000 mls/hr Q20M PRN IV 11/10/16 15:02 (NS 1000 ml Inj) 1,000 ml @ 100 mls/hr Q10H PRN IV 11/10/16 15:22 (fentaNYL INJ) 50 mcg Q1H PRN IV PUSH 11/10/16 15:15 (fentaNYL INJ) 100 mcg Q1H PRN IV PUSH 11/10/16 15:15 (Muri-Lube Oil) 10 ml UNSCH PRN TOPICAL 11/10/16 15:15 Miscellaneous Information No systemic narcotics to be given except... UNSCH PRN .XX 11/10/16 17:45 11/11/16 17:44 Miscellaneous Information DO NOT ADMINISTER ANY ANTICOAGUL... UNSCH PRN .XX 11/10/16 17:45 11/11/16 17:44 (fentaNYL 2MCG-BUPIV 0.125% INJ) 100 ml @ 0 mls/hr TITRATE EPIDURAL 11/10/16 17:45 11/11/16 00:08 (ePHEDrine/NS 25 MG/5 ML SYR) 10 mg UNSCH PRN IV 11/10/16 17:45 11/11/16 17:44 (NS Flush) 2 ml BID IV FLUSH 11/11/16 09:00 (NS Flush) 2 ml UNSCH PRN IV FLUSH 11/11/16 02:45 (Tylenol) 650 mg Q4H PRN PO 11/11/16 02:45 11/11/16 07:47 (Motrin) 600 mg Q6H PRN PO 11/11/16 02:45 11/11/16 07:47 (Percocet 5-325 Mg) 2 tab Q4H PRN PO 11/11/16 02:45 (Americaine 20% Top Spr) 1 spray Q4H PRN TOPICAL 11/11/16 02:45 11/11/16 07:48 (Tucks Pads) 1 applic QID PRN TOPICAL 11/11/16 02:45 11/11/16 07:48 (Heydi-Colace) 2 tab Q12H PRN PO 11/11/16 02:45 11/11/16 07:48 (Ambien) 5 mg HS PRN PO 11/11/16 02:45 (M-M-R Ii Inj) 0.5 ml ONCE ONCE SQ 11/11/16 16:00 11/11/16 16:01 (Boostrix Inj) 0.5 ml ONCE ONCE IM 11/11/16 16:00 11/11/16 16:01 (Mag-Al Plus Susp Liq) 15 ml Q8H PRN PO 11/11/16 02:45 (Zofran Odt) 4 mg Q6H PRN PO 11/11/16 02:45 Assessment/Plan Assessment and Plan Patient is a 31-year-old delivered at 40 weeks and 1 day. Patient is day 0 after vaginal delivery. Patient was counseled to do 6 weeks of pelvic rest. Patient was counseled to follow up in 6 weeks. * Continue routine care. * Motrin and Percocet when necessary for pain. * Encourage OOB. * Pelvic rest for 6 weeks will need follow-up appointment at that time. * Contraception: to be discussed at OB follow-up. * Anticipate discharge tomorrow. Nicol Valenzuela Dr., MD R1 Nov 11, 2016 11:51
[2016-11-11] MEDS ORDERED: MEASLES, MUMPS, RUBELLA VACCINE 0.5 ML VIAL SQ ONE (16:00)
[2016-11-11] MEDS ORDERED: DIPHTH/TETANUS/ACEL PERTUSSIS (BOOSTER) 0.5 ML VIAL/PFS IM ONE (16:00)
[2016-11-12] MEDS: LACTATED RINGER'S 1000 ML INJ 1,000 ML IV SCH (07:00)
--- NOTE | 2016-11-12 07:46 | HHI.OB ---
Subjective Post Day: 1 Remarks Patient is feeling good today. She would like to go home. She is ambulating and voiding without difficulty. She denies fever, chills, nausea, vomiting. She is passing gas. She is breast-feeding successfully. Vaginal bleeding has decreased from yesterday and within normal limits. Objective Vitals/I&O Vital Signs Date Time Temp Pulse Resp B/P Pulse Ox O2 Delivery O2 Flow Rate FiO2 11/11/16 23:09 18 11/11/16 23:09 18 11/11/16 20:30 100/73 11/11/16 20:30 97.9 80 18 11/11/16 08:00 98.0 72 16 104/68 Objective Remarks GENERAL: Well-nourished, well-developed patient. CARDIOVASCULAR: Regular rate and rhythm without murmurs, gallops, or rubs. RESPIRATORY: Breath sounds equal bilaterally. No accessory muscle use. ABDOMEN/GI: Abdomen soft, non-tender. Fundus: Firm, non-tender at umbilicus. GENITOURINARY: Moderate bleeding. EXTREMITIES: No cyanosis or edema, non-tender, without signs of DVT. Medications and IVs Current Medications Medications (Trade) Dose Ordered Sig/Nitin Route Start Time Stop Time Status Last Admin Lactated Ringer's 1,000 ml @ 125 mls/hr Q8H IV 11/10/16 15:00 11/11/16 00:08 Lactated Ringer's 1,000 ml @ 3,000 mls/hr Q20M PRN IV 11/10/16 15:02 (NS 1000 ml Inj) 1,000 ml @ 100 mls/hr Q10H PRN IV 11/10/16 15:22 (fentaNYL INJ) 50 mcg Q1H PRN IV PUSH 11/10/16 15:15 (fentaNYL INJ) 100 mcg Q1H PRN IV PUSH 11/10/16 15:15 Mineral Oil 10 ml 10 ml UNSCH PRN TOPICAL 11/10/16 15:15 (fentaNYL 2MCG-BUPIV 0.125% INJ) 100 ml @ 0 mls/hr TITRATE EPIDURAL 11/10/16 17:45 11/11/16 00:08 (NS Flush) 2 ml BID IV FLUSH 11/11/16 09:00 (NS Flush) 2 ml UNSCH PRN IV FLUSH 11/11/16 02:45 (Tylenol) 650 mg Q4H PRN PO 11/11/16 02:45 11/11/16 22:09 (Motrin) 600 mg Q6H PRN PO 11/11/16 02:45 11/11/16 22:09 (Percocet 5-325 Mg) 2 tab Q4H PRN PO 11/11/16 02:45 (Americaine 20% Top Spr) 1 spray Q4H PRN TOPICAL 11/11/16 02:45 11/11/16 07:48 (Tucks Pads) 1 applic QID PRN TOPICAL 11/11/16 02:45 11/11/16 07:48 (Heydi-Colace) 2 tab Q12H PRN PO 11/11/16 02:45 11/11/16 07:48 (Ambien) 5 mg HS PRN PO 11/11/16 02:45 (Mag-Al Plus Susp Liq) 15 ml Q8H PRN PO 11/11/16 02:45 (Zofran Odt) 4 mg Q6H PRN PO 11/11/16 02:45 Assessment/Plan Problem List: (1) Vaginal delivery Assessment and Plan Patient is a 31-year-old delivered at 40 weeks and 1 day. Patient is day 1 after vaginal delivery. * Continue routine care. * Motrin when necessary for pain. * Encourage OOB. * Pelvic rest for 6 weeks will need follow-up appointment at that time. * Contraception: oral contraception at 6 weeks * discharge today JOVAN Guerin Discharge Planning today Saulo Milner MD R2 Nov 12, 2016 07:46
[2016-11-12] MEDS ORDERED: IBUP-232 PO (07:49)
[2016-11-12] MEDS ORDERED: BENZ20T TOPICAL (07:49)
[2016-11-12] MEDS ORDERED: SENN1TAB PO (07:49)
--- NOTE | 2016-11-12 07:49 | HHI.DCPOC ---
Discharge Care Plan Diagnosis: (1) Vaginal delivery Report Symptoms to Your Doctor -Temperature above 100.5 degrees -Redness, of incision or excessive or foul smelling drainage -Unusual pain or calf pain -Increased vaginal bleeding -Painful or difficulty urinating -Feelings of extreme sadness or anxiety after 2 weeks Goals to Promote Your Health * To prevent worsening of your condition and complications * To maintain your health at the optimal level Directions to Meet Your Goals Take your medications as prescribed Follow your dietary instruction Follow activity as directed Ensure plenty of rest for recovery Drink fluids for hydration Keep your appointments as scheduled Take your immunizations and boosters as scheduled If your symptoms worsen call your PCP, if no PCP go to Urgent Care Center or Emergency Room Smoking is Dangerous to Your Health. Avoid second hand smoke Call the 24-hour crisis hotline for domestic abuse at Saulo Milner MD R2 Nov 12, 2016 07:49
[2016-11-12 08:25] VITALS: BP 94/65; PULSE 66; RESP 16; TEMP 97.9
[2016-11-12] MEDS: ACETAMINOPHEN 325 MG TAB PO PRN (08:36)
[2016-11-12] MEDS: IBUPROFEN 600 MG TAB PO PRN (08:36)
--- NOTE | 2016-11-12 09:49 | HHI.OB ---
Subjective Post Day: 1 Remarks Patient is a 31-year-old delivered at 40 weeks and 1 day. Patient is day 1 after . Patient's pain is well-controlled. Patient reports eating and drinking without any nausea or vomiting. Patient reports minimal bleeding. Patient has passed gas and has had a bowel movement. Patient is walking without lower extremity pain or shortness of breath. Patient is breast- feeding. Objective Vitals/I&O Vital Signs Date Time Temp Pulse Resp B/P Pulse Ox O2 Delivery O2 Flow Rate FiO2 11/12/16 08:25 97.9 66 16 94/65 11/11/16 23:09 18 11/11/16 23:09 18 11/11/16 20:30 100/73 11/11/16 20:30 97.9 80 18 Objective Remarks GENERAL: Well-nourished, well-developed patient. CARDIOVASCULAR: Regular rate and rhythm without murmurs, gallops, or rubs. RESPIRATORY: Breath sounds equal bilaterally. No accessory muscle use. ABDOMEN/GI: Abdomen soft, non-tender. Fundus: Firm, non-tender at umbilicus. GENITOURINARY: Moderate bleeding. EXTREMITIES: No cyanosis or edema, non-tender, without signs of DVT. Medications and IVs Current Medications Medications (Trade) Dose Ordered Sig/Nitin Route Start Time Stop Time Status Last Admin Lactated Ringer's 1,000 ml @ 125 mls/hr Q8H IV 11/10/16 15:00 11/11/16 00:08 Lactated Ringer's 1,000 ml @ 3,000 mls/hr Q20M PRN IV 11/10/16 15:02 (NS 1000 ml Inj) 1,000 ml @ 100 mls/hr Q10H PRN IV 11/10/16 15:22 (fentaNYL INJ) 50 mcg Q1H PRN IV PUSH 11/10/16 15:15 (fentaNYL INJ) 100 mcg Q1H PRN IV PUSH 11/10/16 15:15 Mineral Oil 10 ml 10 ml UNSCH PRN TOPICAL 11/10/16 15:15 (fentaNYL 2MCG-BUPIV 0.125% INJ) 100 ml @ 0 mls/hr TITRATE EPIDURAL 11/10/16 17:45 11/11/16 00:08 (NS Flush) 2 ml BID IV FLUSH 11/11/16 09:00 (NS Flush) 2 ml UNSCH PRN IV FLUSH 11/11/16 02:45 (Tylenol) 650 mg Q4H PRN PO 11/11/16 02:45 11/12/16 08:36 (Motrin) 600 mg Q6H PRN PO 11/11/16 02:45 11/12/16 08:36 (Percocet 5-325 Mg) 2 tab Q4H PRN PO 11/11/16 02:45 (Americaine 20% Top Spr) 1 spray Q4H PRN TOPICAL 11/11/16 02:45 11/11/16 07:48 (Tucks Pads) 1 applic QID PRN TOPICAL 11/11/16 02:45 11/11/16 07:48 (Heydi-Colace) 2 tab Q12H PRN PO 11/11/16 02:45 11/11/16 07:48 (Ambien) 5 mg HS PRN PO 11/11/16 02:45 (Mag-Al Plus Susp Liq) 15 ml Q8H PRN PO 11/11/16 02:45 (Zofran Odt) 4 mg Q6H PRN PO 11/11/16 02:45 Assessment/Plan Problem List: (1) Vaginal delivery Assessment and Plan Patient is a 31-year-old delivered at 40 weeks and 1 day. Patient is day 1 after vaginal delivery. * Continue routine care. * Motrin when necessary for pain. * Encourage OOB. * Pelvic rest for 6 weeks will need follow-up appointment at that time. * Contraception: oral contraception at 6 weeks * Discharge today Dr. Guerin Discharge Planning Today Nicol Matos MD R1 Nov 12, 2016 09:49
== END 2016-11-12 12:46 | disposition home or self-care (01) | DRG 775 ==
LOC: HOBED 14:10 → H2EB 15:10 → H1EA 11-11 05:06
PROVIDERS: ADMIT Obstetrics & Gynecology; ATTEND Obstetrics & Gynecology
PROC: 3E0S3CZ (ICD-10-PCS; 2016-11-10)
PROC: 00HU33Z Insertion of Infusion Device into Spinal Canal, Percutaneous Approach (ICD-10-PCS; 2016-11-10)
PROC: 10E0XZZ Delivery of Products of Conception, External Approach (ICD-10-PCS; principal; 2016-11-11)
PROC: 0HQ9XZZ Repair Perineum Skin, External Approach (ICD-10-PCS; 2016-11-11)
DX: O34.211 Maternal care for low transverse scar from previous cesarean delivery (principal); O69.81X0 Labor and delivery complicated by cord around neck, without compression, not applicable or unspecified; O70.0 First degree perineal laceration during delivery; Z37.0 Single live birth; Z3A.40 40 weeks gestation of pregnancy
CPT/HCPCS: 59025; 81001; 84112; 85025; 86900; 86901; 87086; 90715; J7120